=== PATIENT | female | born 1965 | race Caucasian/White ===

== ENCOUNTER → 2016-10-30 | Outpatient (CLI) | payer BC ==
[~2016-10-30] MED LIST: ESTER-C 1,0001 EACH PO; FISH OIL 1,0001 EACH PO; PROBIOTIC1 EAC2 PO; ZOLOFT100 MG PO
== END | disposition home or self-care (01) ==
LOC: CECH 13:35
DX: I51.7 Cardiomegaly (principal)
CPT/HCPCS: 93306

== ENCOUNTER → 2016-11-21 | Day surgery (SDC) | payer BC ==
--- NOTE | ~2016-11-21 | OR ---
Unit #: [id number] #: [id number] Patient: SILVESTRE AGRAWAL [id number] [address] [place], [place] [address] [id number] O MR#: [id number] NAME: SILVESTRE AGRAWAL ROOM: Date of Procedure: 11/21/2016 Admission Date: 11/21/2016 Surgeon: Wenceslao Waters M.D. : 1965 Attending Physician: Wenceslao Waters M.D. Primary Care Physician: Doyle Turner M.D. OPERATIVE REPORT PREOPERATIVE DIAGNOSES The patient presented with a history of dilated common bile duct about 14 mm. She is status post cholecystectomy. The LFTs are normal and she was found to have dilated common bile duct on a recent imaging study. PROCEDURES PERFORMED 1. Endoscopic retrograde cholangiopancreatography and sphincterotomy. 2. Endoscopic retrograde cholangiopancreatography and balloon sweep of the common bile duct. 3. Endoscopic retrograde cholangiopancreatography and prophylactic pancreatic stent placement. POSTOPERATIVE DIAGNOSES The patient had evidence of papillary stenosis, dilated common bile duct about 10 to 11 mm. After a sphincterotomy, the duct was swept with 10 mm retrieval balloon multiple times. No debris or stones were delivered. Also, there was no evidence of any stricture or tumor. A prophylactic pancreatic ductal stent was placed. RECOMMENDATIONS The patient will be followed up in the office in 2 to 3 months' time. SEDATION USED MAC. DESCRIPTION OF PROCEDURE Following detailed explanation of the potential risks and complications of an ERCP, namely perforation, bleeding, complication related to sedation and pancreatitis, the patient was brought to GI lab and laid in the left semiprone position. Sedation using MAC was given. A preliminary upper GI endoscopy was performed, which was normal. A lateral viewing duodenoscope was advanced through the oral cavity into the esophagus and advanced to the stomach. Pylorus was intubated in the usual fashion. The scope was advanced in deep descending duodenum. Upon shortening the scope, major papillary and ampullary area was visualized en face. Using sphincterotome and guidewire based cannulation technique, the pancreatic duct was cannulated in the first couple of attempts. The pancreatic ductal wire was then anchored and using double wire technique, common bile duct was cannulated. Contrast cholangiogram was then obtained. The patient was noted to have dilated common bile duct; however, no filling defects were seen. A limited sphincterotomy was then performed. Rapid emptying of the duct was seen. We then used a 9 to 12 mm retrieval balloon at 9 and 10 mm Unit #: [id number] #: [id number] Patient: SILVESTRE AGRAWAL and the duct was swept 2 to 3 times. No debris or stones were delivered. A pancreatic ductal stent was placed prophylactically to prevent postprocedure pancreatitis. No contrast injected in pancreatic duct. The scope and the accessories were then withdrawn. The patient returned to the recovery area. She did have postprocedure pain in the upper abdomen and she was treated with fentanyl and Zofran. She was having mild residual pain prior to discharge and was given oral hydrocodone for p.r.n. usage for the next couple of days. Dictated by... Jose Weston/farida TD: 11/22/2016 01:43 JOB #: [id number] CC: Doyle Turner M.D. OPERATIVE REPORT Page 1 of 1 X Wenceslao Waters MD X PROCEDURE OPERATIVE NOTE
--- NOTE | ~2016-11-21 | CR84 ---
[facility] A Service of [facility] / [facility] RADIOLOGY TEXT RESULTS PATIENT: SILVESTRE AGRAWAL LOCATION: [facility] [employer] : 63 UNIT #: [id number] AGE: [address]: Wenceslao Waters MD SEX: F ORDER DR: [id number] [facility] [address]. [place], [place] [address] [id number] O MR#: [id number] Acc #: [id number] NAME: SILVESTRE AGRAWAL : 1965 SEX: F STUDY DATE/TIME: 11/21/2016 15:24 UNIT: [facility] ROOM: STUDY DESCRIPTION: CR ERCP Biliary and Pancr SI Attending Physician: Wenceslao Waters M.D. Ordering Physician: Wenceslao Waters M.D. Primary Care Physician: Doyle Turner M.D. MEDICAL IMAGING REPORT This report is preliminary unless electronic signature is present EXAM ERCP HISTORY Common bile duct dilatation with a common duct stones. TECHNIQUE 6 spot films were obtained documenting retrograde injection of the common bile duct. Total fluoroscopy time 151 seconds. Please see the endoscopist report for full details of the procedure. Dictated by... Stiven Casey M.D. THIS IS AN ELECTRONICALLY VERIFIED REPORT Stiven Casey M.D. at 11/23/2016 11:36 AM KEN/german TD: 11/22/2016 21:47 JOB #: [id number] MEDICAL IMAGING REPORT Page 1 of 1 COPY
[2016-11-21 18:11] LABS: BASOPHIL% 0.6 % (0-2.5); EOSINOPHIL% 0.8 % (0.0-7.0); HEMATOCRIT 41.2 % (35.0-45.0); HEMOGLOBIN 13.5 gm/dL (12.0-16.0); LYMPHOCYTE% 24.8 % (17.0-45.0); MEAN CELL VOLUME 91.9 FL (83-96); MEAN CORPUSCULAR HEMOGLOBIN 30.2 PG (28-34); MEAN CORPUSCULAR HGB CONC 32.8 g/dL (30-36); MEAN PLATELET VOLUME 9.3 FL (6.5-11.5); MONOCYTE# 0.3 X10e3 (0-1.0); MONOCYTE% 7.1 % (3.0-12.0); NEUTROPHIL# 2.6 X10e3 (1.5-7.1); NEUTROPHIL% 66.7 % (40-75); PLATELET COUNT 187 X10e3 (140-420); RED BLOOD COUNT 4.48 X10e (3.90-5.30); RED CELL DISTRIBUTION WIDTH 13.4 % (11.0-15.5); WHITE BLOOD COUNT 3.9 X10e3 (4.0-10.5)
[2016-11-21 18:23] LABS: DIFF IND NO
[2016-11-21 18:36] LABS: ALBUMIN SERUM 4.3 g/dL (3.5-5.0); BILIRUBIN,TOTAL 0.7 mg/dL (0.2-2.0); BUN/CREATININE RATIO 31.66; CALCIUM SERUM 8.7 mg/dL (8.4-10.2); CREATININE SERUM 0.6 mg/dL (0.6-1.4); GLOM FILT RATE Estimated 104.8 mL/min (>60); POTASSIUM 3.4 mmol/L (3.5-5.1); PROTEIN TOTAL SERUM 6.9 g/dL (6.0-8.3)
== END | disposition home or self-care (01) ==
LOC: COPS 13:32
PROVIDERS: Internal Medicine Gastroenterology
DX: K83.8 Other specified diseases of biliary tract (principal); Z90.49 Acquired absence of other specified parts of digestive tract
CPT/HCPCS: 74330; 80053; 82150; 83690; 85025; 86301; J1610; J2250; J2405; J3010

== ENCOUNTER → 2016-11-24 | Outpatient (CLI) | payer BC ==
[2016-11-24 10:14] LABS: BASOPHIL% 0.4 % (0-2.5); EOSINOPHIL% 0.3 % (0.0-7.0); HEMATOCRIT 35.1 % (35.0-45.0); HEMOGLOBIN 11.4 gm/dL (12.0-16.0); LYMPHOCYTE# 0.9 X10e3 (1.0-3.5); LYMPHOCYTE% 6.7 % (17.0-45.0); MEAN CELL VOLUME 91.9 FL (83-96); MEAN CORPUSCULAR HEMOGLOBIN 29.9 PG (28-34); MEAN CORPUSCULAR HGB CONC 32.5 g/dL (30-36); MEAN PLATELET VOLUME 9.5 FL (6.5-11.5); MONOCYTE# 0.9 X10e3 (0-1.0); MONOCYTE% 6.7 % (3.0-12.0); NEUTROPHIL# 10.9 X10e3 (1.5-7.1); NEUTROPHIL% 85.9 % (40-75); PLATELET COUNT 157 X10e3 (140-420); RED BLOOD COUNT 3.81 X10e (3.90-5.30); RED CELL DISTRIBUTION WIDTH 13.6 % (11.0-15.5); WHITE BLOOD COUNT 12.8 X10e3 (4.0-10.5)
[2016-11-24 10:20] LABS: DIFF IND NO
[2016-11-24 10:39] LABS: ALBUMIN SERUM 3.5 g/dL (3.5-5.0); BILIRUBIN,TOTAL 0.7 mg/dL (0.2-2.0); BUN/CREATININE RATIO 13.33; CALCIUM SERUM 8.6 mg/dL (8.4-10.2); CREATININE SERUM 0.6 mg/dL (0.6-1.4); GLOM FILT RATE Estimated 104.8 mL/min (>60); POTASSIUM 3.3 mmol/L (3.5-5.1); PROTEIN TOTAL SERUM 6.6 g/dL (6.0-8.3)
== END | disposition home or self-care (01) ==
LOC: CLAB 09:48
PROVIDERS: Nurse Practitioner
DX: R10.9 Unspecified abdominal pain (principal)
CPT/HCPCS: 36415; 80053; 82150; 83690; 85025

== ENCOUNTER → 2017-01-14 | Outpatient (CLI) | payer BC ==
--- NOTE | ~2017-01-14 | US49 ---
[facility] A Service of [facility] / [facility] RADIOLOGY TEXT RESULTS PATIENT: SILVESTRE AGRAWAL LOCATION: [facility] : 63 UNIT #: [id number] AGE: [address]: James Liu MD SEX: F ORDER DR: [id number] [facility] [address] [place], [place] [address] [id number] O MR#: [id number] Acc #: [id number] NAME: SILVESTRE AGRAWAL : 1965 SEX: F STUDY DATE/TIME: 01/14/2017 13:10 UNIT: [facility] ROOM: STUDY DESCRIPTION: US Extremity Non Vasc Complete Attending Physician: James Liu M.D. Referring Physician: James Liu M.D. Ordering Physician: James Liu M.D. Primary Care Physician: Doyle Turner M.D. MEDICAL IMAGING REPORT This report is preliminary unless electronic signature is present EXAM Ultrasound at the left lateral chest wall. INDICATIONS Lump for 1 year with prior pain in the area, although, currently there is no pain. TECHNIQUE [place]-scale and color Doppler sonographic images were obtained through the areas of concern. FINDINGS No abnormality is seen within the area of concern. I do not see any solid or cystic masses. No fluid collections are seen. The patient did have a CT of the chest without contrast performed September 09, 2016, which really did not show any chest wall abnormalities. IMPRESSION No abnormalities identified within the area concern. Patient did have a CT of the chest from September 09, 2016, which not show any abnormalities along the left lateral chest wall. If clinical concern persists, further evaluation with dedicated CT of the chest with contrast with a marker placed over the area of concern is suggested. Dictated by... Kayleen Payne M.D. THIS IS AN ELECTRONICALLY VERIFIED REPORT Kayleen Payne M.D. at 01/15/2017 4:56 PM AFF/jzach [facility] A Service of [facility] & [facility] / [facility] RADIOLOGY TEXT RESULTS PATIENT: SILVESTRE AGRAWAL LOCATION: [facility] #: [id number] : [birth year] UNIT #: [id number] AGE: [address]: James Liu MD SEX: F ORDER DR: TD: 01/15/2017 15:45 JOB #: [id number] MEDICAL IMAGING REPORT Page 1 of 1 COPY
== END | disposition home or self-care (01) ==
LOC: CGUS 12:44
DX: R22.2 Localized swelling, mass and lump, trunk (principal)
CPT/HCPCS: 76881